=== PATIENT | male | born 1990 | race Caucasian/White ===

== ENCOUNTER 2018-03-29 22:45 | Emergency (ER) | payer OTHER ==
[~2018-03-29] VITALS: Ht 175.3 cm; Wt 79.4 kg
[~2018-03-29 22:45] MED LIST: CITA-72 PO; CLON2TAB10 PO; LORA1TAB7 PO; QUET400T PO
[2018-03-29 23:00] VITALS: BP 139/90
--- NOTE | 2018-03-29 23:03 | NUR ---
PT SENT TO [facility], W/ FRIEND
--- NOTE | 2018-03-29 23:33 | NUR ---
PT AMUBLATED TO ER BED 03
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
[2018-03-30] MEDS ORDERED: MORPHINE SULFATE 2 MG/ML SYR IM ONE (01:00)
[2018-03-30] MEDS ORDERED: LORazepam 2 MG/ML VIAL IM ONE (01:00)
--- NOTE | 2018-03-30 01:35 | NUR ---
Patient discharged with v/s stable. Written and verbal after care instructions given and explained to patient. Patient verbalized understanding. steady gait. All questions addressed prior to discharge. Advised to follow up with PMD.
[2018-03-30 01:38] VITALS: BP 125/87
== END 2018-03-30 01:35 | disposition home or self-care (01) ==
LOC: MED 22:45
DX: G89.29 Other chronic pain (principal); M54.2 Cervicalgia; F41.9 Anxiety disorder, unspecified; F32.9 Major depressive disorder, single episode, unspecified; Z79.899 Other long term (current) drug therapy
CPT/HCPCS: 96372; 99284; J2060; J2270

== ENCOUNTER 2018-05-15 15:52 | Emergency (ER) | payer OTHER ==
[~2018-05-15] VITALS: Ht 175.3 cm; Wt 77.2 kg
[2018-05-15 16:25] VITALS: BP 185/80
[2018-05-15] MEDS ORDERED: MORPHINE SULFATE 4 MG/ML SYR IVP ONE (16:55)
[2018-05-15] MEDS ORDERED: ONDANSETRON 4 MG/2 ML VIAL IVP ONE (16:55)
[2018-05-15] MEDS ORDERED: NACL 0.9% 1,000 ML IV SCH (16:55)
[2018-05-15] MEDS ORDERED: KETOROLAC 30 MG/ML VIAL IVP ONE ×2 (19:10→19:30)
[2018-05-15 20:30] VITALS: BP 158/98
== END 2018-05-15 20:30 | disposition home or self-care (01) ==
LOC: MED 15:52
DX: S02.401A Maxillary fracture, unspecified side, initial encounter for closed fracture (principal); S06.0X9A Concussion with loss of consciousness of unspecified duration, initial encounter; F41.9 Anxiety disorder, unspecified; Z79.899 Other long term (current) drug therapy; Y04.2XXA Assault by strike against or bumped into by another person, initial encounter; Y93.89 Activity, other specified; Y92.89 Other specified places as the place of occurrence of the external cause; Y99.8 Other external cause status
CPT/HCPCS: 70450; 70486; 72125; 96361; 96374; 96375; 99284; J1885; J2270; J2405; J7030

== ENCOUNTER 2019-09-25 13:47 | Emergency (ER) | payer BC, OTHER ==
[~2019-09-25] VITALS: Ht 175.3 cm; Wt 81.6 kg
[2019-09-25 13:49] VITALS: BP 138/95
[2019-09-25] MEDS: KETOROLAC 30 MG/ML VIAL IM ONE (14:47)
[2019-09-25 15:10] VITALS: BP 138/95
== END 2019-09-25 15:10 | disposition home or self-care (01) ==
LOC: MED 13:47
DX: M54.2 Cervicalgia (principal); G89.29 Other chronic pain; R19.7 Diarrhea, unspecified; F41.9 Anxiety disorder, unspecified; Z79.899 Other long term (current) drug therapy
CPT/HCPCS: 96372; 99283; J1885

== ENCOUNTER 2021-11-02 07:00 | Emergency (ER) | payer BC, OTHER ==
[~2021-11-02] VITALS: Ht 175.3 cm; Wt 82.6 kg
[2021-11-02 07:04] VITALS: BP 120/63
[2021-11-02] MEDS ORDERED: AMOX500C25 PO (07:52)
[2021-11-02 08:01] VITALS: BP 120/63
== END 2021-11-02 08:01 | disposition home or self-care (01) ==
LOC: MED 07:00
DX: H66.92 Otitis media, unspecified, left ear (principal)
CPT/HCPCS: 99283

== ENCOUNTER 2023-08-01 06:30 | Emergency (ER) | payer BC, OTHER ==
[~2023-08-01] VITALS: Ht 175.3 cm; Wt 81.6 kg
[~2023-08-01 06:30] MED LIST changes: +AMOX500C25 PO
[2023-08-01 06:42] VITALS: BP 116/75; PULSE 82; RESP 20; TEMP 97.1; O2SAT 99
[2023-08-01] MEDS: KETOROLAC 30 MG/ML VIAL IM ONE (08:06)
[2023-08-01] MEDS: ACETAMINOPHEN EXTRA STRENGTH 500 MG TAB PO ONE (08:08)
[2023-08-01] MEDS ORDERED: CYCL-711 PO (08:14)
[2023-08-01 08:36] VITALS: BP 116/75; PULSE 82; RESP 20; TEMP 97.1; O2SAT 99
== END 2023-08-01 08:36 | disposition home or self-care (01) ==
LOC: MED 06:30
DX: S16.1XXA Strain of muscle, fascia and tendon at neck level, initial encounter (principal); X58.XXXA Exposure to other specified factors, initial encounter; Y93.89 Activity, other specified; Y92.89 Other specified places as the place of occurrence of the external cause; Y99.8 Other external cause status
CPT/HCPCS: 96372; 99283; J1885